=== PATIENT | female | born 1955 | race Caucasian/White ===

== ENCOUNTER → 2016-12-13 | Outpatient (CLI) | payer OTHER ==
[~2016-12-13] MED LIST: CERTAGEN PO; FISH OIL 1,0001 CAP PO; HORMONE MED; HYDROCODON-ACE1 EAC5 PO; LIPITOR40 MG PO; NEURONTIN100 MG PO; PRAMIPEXOLE DI0.5 MG PO; PROTONIX PO; RANITIDINE HCL300 M1 PO; REQUIP1 MG PO
--- NOTE | ~2016-12-13 | BD1 ---
[facility] A Service of [facility] [place] [facility] RADIOLOGY TEXT RESULTS PATIENT: JALIL LOZA LOCATION: [facility] : 57 UNIT #: [id number] AGE: [address]: Kimberley Guajardo MD SEX: F ORDER DR: [id number] [facility] [address] [place], [place] [address] [id number] O MR#: [id number] Acc #: [id number] NAME: JALIL LOZA : 1955 SEX: F STUDY DATE/TIME: 12/13/2016 10:43 UNIT: [facility] ROOM: STUDY DESCRIPTION: BD Dexa Bone Dens 1+ Site Attending Physician: Kimberley Guajardo M.D. Referring Physician: Kimberley Guajardo M.D. Ordering Physician: Kimberley Guajardo M.D. Primary Care Physician: Kimberley Guajardo M.D. MEDICAL IMAGING REPORT This report is preliminary unless electronic signature is present EXAM Bone densitometry. HISTORY 61-year-old female with routine screening. FINDINGS Bone mineral density of lumbar spine (L1-L4) is calculated at 0.862 g/cm2. This correlates with a T score of -1.7 and a Z score of -0.2. This is classified as osteopenia. Bone mineral density of the left proximal femoral neck region is calculated at 0.685 g/cm2. This correlates with a T score of -1.5 and a Z score of -0.2. This is classified as osteopenia. IMPRESSION Osteopenia. Dictated by... Ousmane Feliz M.D. THIS IS AN ELECTRONICALLY VERIFIED REPORT Ousmane Feliz M.D. at 12/14/2016 10:52 AM FELTON/shree TD: 12/14/2016 09:40 JOB #: [id number] MEDICAL IMAGING REPORT Page 1 of 1 COPY
--- NOTE | ~2016-12-13 | MY29 ---
[facility] A Service of [facility] RADIOLOGY TEXT RESULTS PATIENT: JALIL LOZA LOCATION: [facility] : 57 UNIT #: [id number] AGE: [address]: Kimberley Guajardo MD SEX: F ORDER DR: [id number] [facility] [address] [place], [place] [address] [id number] O MR#: [id number] Acc #: [id number] NAME: JALIL LZOA. : 1955 SEX: F STUDY DATE/TIME: 12/13/2016 10:59 UNIT: [facility] ROOM: STUDY DESCRIPTION: MY LUPE SCREENING W/ CAD BILAT Attending Physician: Kimberley Guajardo M.D. Referring Physician: Kimberley Guajardo M.D. Ordering Physician: Kimberley Guajardo M.D. Primary Care Physician: Kimberley Guajardo M.D. MEDICAL IMAGING REPORT This report is preliminary unless electronic signature is present EXAM Digital screening mammogram, 12/13/2016, [facility]. HISTORY 61-year-old woman; no risk elevation. Annual screening. COMPARISON Comparison mammograms date to 10/18/2007, with most recent 02/06/2015 FINDINGS Digital imaging of each breast was completed, utilizing screening protocol. Review includes FDA-approved CAD device. Breast parenchyma is predominantly fatty replaced in each breast. Mild residual parenchyma is centrally located, left breast, with mild subareolar duct dilatation in the left breast. I see no interval occurring mass or suspicious microcalcifications. There is no architectural deformity. IMPRESSION Negative mammogram. Annual screening recommended. Patients over the age of 40 are entered into a reminder system with target due date for the next mammogram. A result letter will also be sent to the patient. BIRADS: 1 Negative Dictated by... Fan Schwartz M.D. THIS IS AN ELECTRONICALLY VERIFIED REPORT [facility] A Service of [facility] & [facility] RADIOLOGY TEXT RESULTS PATIENT: JALIL LOZA [id number] 57 UNIT #: [id number] AGE: [address]: Kimberley Guajardo MD SEX: F ORDER DR: Fan Schwartz M.D. at 12/14/2016 7:04 AM GRIFFIN/jenny TD: 12/13/2016 17:07 JOB #: [id number] MEDICAL IMAGING REPORT Page 1 of 1 COPY
== END | disposition home or self-care (01) ==
LOC: CWCC 10:00
DX: Z13.820 Encounter for screening for osteoporosis (principal); Z12.31 Encounter for screening mammogram for malignant neoplasm of breast; M85.89 Other specified disorders of bone density and structure, multiple sites
CPT/HCPCS: 77080; G0202